=== PATIENT | female | born 1985 | race Caucasian/White ===

== ENCOUNTER 2017-02-07 08:22 | Outpatient (CLI) | payer OTHER | END 2017-02-07 20:37 | disposition home or self-care (01) | LOC: MLB 08:22 | PROVIDERS: ATTEND Family Medicine | DX: D64.9 Anemia, unspecified (principal) ==

== ENCOUNTER 2017-03-07 08:22 | Outpatient (CLI) | payer OTHER | END 2017-03-07 21:35 | disposition home or self-care (01) | LOC: MLB 08:22 | PROVIDERS: ATTEND Family Medicine | DX: R74.0 Nonspecific elevation of levels of transaminase and lactic acid dehydrogenase [LDH] (principal); D50.0 Iron deficiency anemia secondary to blood loss (chronic) ==

== ENCOUNTER 2017-03-10 08:18 | Outpatient (CLI) | payer OTHER | END 2017-03-10 20:45 | disposition home or self-care (01) | LOC: MUS 08:18 | PROVIDERS: ATTEND Family Medicine | PROC: BW40ZZZ Ultrasonography of Abdomen (ICD-10-PCS; principal; 2017-03-10) | PROC: BW4GZZZ Ultrasonography of Pelvic Region (ICD-10-PCS; principal; 2017-03-10) | DX: D50.0 Iron deficiency anemia secondary to blood loss (chronic) (principal); R74.0 Nonspecific elevation of levels of transaminase and lactic acid dehydrogenase [LDH]; N92.0 Excessive and frequent menstruation with regular cycle | CPT/HCPCS: 76700; 76856 ==

== ENCOUNTER 2018-01-26 08:39 | Outpatient (CLI) | payer OTHER ==
[2018-01-26 09:02] LABS: BASOPHILS # (AUTO) 0.2 K/uL (0.00-0.22); BASOPHILS % (AUTO) 2.3 % (0.0-2.0); EOSINOPHILS # (AUTO) 0.1 K/uL (0-0.4); EOSINOPHILS % (AUTO) 1.9 % (0.0-4.0); HEMATOCRIT 28.6 % (36-48); HEMOGLOBIN 8.4 g/dL (12.0-16.0); LYMPHOCYTES # (AUTO) 2.5 K/uL (2.5-16.5); LYMPHOCYTES % (AUTO) 37.6 % (20.5-51.1); MEAN CORPUSCULAR HEMOGLOBIN 18 pg (27-31); MEAN CORPUSCULAR HGB CONC 30 g/dL (33-37); MEAN CORPUSCULAR VOLUME 62.5 fL (80-94); MONOCYTES # (AUTO) 0.3 K/uL (0.8-1.0); MONOCYTES % (AUTO) 3.9 % (1.7-9.3); NEUTROPHILS # (AUTO) 3.4 K/uL (1.8-7.7); NEUTROPHILS % (AUTO) 54.3 % (42.2-75.2); PLATELET COUNT (AUTO) 325 K/uL (140-450); RED BLOOD CELL COUNT(AUTO) 4.58 MIL/uL (4.20-5.40); RED CELL DISTRIBUTION WIDTH 17.3 % (11.6-13.7); WHITE BLOOD COUNT (AUTO) 6.5 K/uL (4.8-10.8)
[2018-01-26 10:05] LABS: ALBUMIN 3.6 g/dL (3.4-5.0); ANION GAP 13.6 (8-16); CARBON DIOXIDE 26.1 mmol/L (21-32); CHOL/HDL RATIO 5.3 (1-4.5); CREATININE 0.6 mg/dL (0.6-1.3); POTASSIUM 3.7 mmol/L (3.5-5.1); TOTAL BILIRUBIN 0.3 mg/dL (0.0-1.0)
[2018-01-30 17:28] LABS: VITAMIN D, 25-HYDROXY 11.8 ng/mL (32.0 - 100)
== END 2018-01-26 18:04 | disposition home or self-care (01) ==
LOC: MLB 08:39
PROVIDERS: ATTEND Family Medicine
DX: D64.9 Anemia, unspecified (principal); E55.9 Vitamin D deficiency, unspecified; R74.0 Nonspecific elevation of levels of transaminase and lactic acid dehydrogenase [LDH]
CPT/HCPCS: 36415; 80053; 82306; 82652; 85025

== ENCOUNTER 2019-01-28 09:51 | Emergency (ER) | payer OTHER ==
[~2019-01-28] VITALS: Ht 160 cm; Wt 83.9 kg
[2019-01-28 09:55] VITALS: BP 167/108
--- NOTE | 2019-01-28 09:55 | NUR ---
PT AMBULATES TO BED 1
--- NOTE | 2019-01-28 09:58 | NUR ---
33 Y F C/O RT. NECK PAIN AND HEADACHE WHEN WAKING UP THIS MORNING. 10/10 PAIN. EAR IS RED AND SWOLLEN INSIDE. ALSO WITH DIZZINESS. DENIES N/V. DENIES INJURY. AA0X4. HIGH BP, WILL REPEAT BP IN TEN MINUTES. BED IS DOWN, LOCKED, BED RAIL X 1. ERMD NOTIFIED. DENIES HX:- DENIES MEDS.
[2019-01-28] MEDS ORDERED: NACL 0.9% 1,000 ML IV SCH (10:16)
[2019-01-28] MEDS ORDERED: MORPHINE SULFATE 4 MG/ML SYR IVP ONE (10:20)
[2019-01-28] MEDS ORDERED: AZITHROMYCIN 500 MG in DEXTROSE 5% 250 ML IV ONE (10:20)
[2019-01-28] MEDS ORDERED: PIPERACILLIN/TAZOBACTAM 3.375 GM in DEXT 5% MINI-BAG PLUS 50 ML IV ONE (10:20)
[2019-01-28] MEDS ORDERED: FAMOTIDINE 20 MG/2 ML VIAL IVP ONE (10:20)
[2019-01-28] MEDS ORDERED: DEXAMETHASONE 10 MG/ML VIAL IVP ONE (10:20)
[2019-01-28] MEDS ORDERED: MECLIZINE 25 MG TAB PO ONE (10:20)
--- NOTE | 2019-01-28 10:26 | NUR ---
DR LARKIN AT BEDSIDE
--- NOTE | 2019-01-28 10:40 | NUR ---
NEW BP IS 160/94
[2019-01-28] MEDS ORDERED: AZITHROMYCIN 500 MG INJ VIAL IV ONE (10:41)
[2019-01-28] MEDS ORDERED: PIPERACILLIN/TAZOBACTAM 3.375 GM VIAL IV ONE (10:41)
[2019-01-28 10:58] LABS: BASOPHILS % (AUTO) 0.2 % (0.0-2.0); EOSINOPHILS # (AUTO) 0.1 K/uL (0-0.4); EOSINOPHILS % (AUTO) 1.1 % (0.0-4.0); HEMATOCRIT 27.9 % (36-48); HEMOGLOBIN 8.2 g/dL (12.0-16.0); LYMPHOCYTES # (AUTO) 1.5 K/uL (2.5-16.5); LYMPHOCYTES % (AUTO) 18.2 % (20.5-51.1); MEAN CORPUSCULAR HEMOGLOBIN 19 pg (27-31); MEAN CORPUSCULAR HGB CONC 29 g/dL (33-37); MEAN CORPUSCULAR VOLUME 64.1 fL (80-94); MONOCYTES # (AUTO) 0.4 K/uL (0.8-1.0); MONOCYTES % (AUTO) 4.4 % (1.7-9.3); NEUTROPHILS # (AUTO) 6.3 K/uL (1.8-7.7); NEUTROPHILS % (AUTO) 76.1 % (42.2-75.2); PLATELET COUNT (AUTO) 296 K/uL (140-450); RED BLOOD CELL COUNT(AUTO) 4.35 MIL/uL (4.20-5.40); RED CELL DISTRIBUTION WIDTH 19.1 % (11.6-13.7); WHITE BLOOD COUNT (AUTO) 8.2 K/uL (4.8-10.8)
[2019-01-28 11:07] LABS: ANION GAP 9.7 (8-16); CARBON DIOXIDE 30.3 mmol/L (21-32); CREATININE 0.6 mg/dL (0.6-1.3)
[2019-01-28] MEDS ORDERED: KETOROLAC 30 MG/ML VIAL IVP ONE (11:10)
[2019-01-28 11:11] LABS: ALBUMIN 3.4 g/dL (3.4-5.0); TOTAL BILIRUBIN 0.5 mg/dL (0.0-1.0)
--- NOTE | 2019-01-28 12:07 | NUR ---
PT STATES SHE IS NO LONGER IN PAIN. 0. PT IS RESTING IN BED WITHT HE LIGHTS OFF. VSS AT THIS TIME. AA0X4.
[2019-01-28 13:40] VITALS: BP 137/90
--- NOTE | 2019-01-28 13:40 | NUR ---
Patient discharged with v/s stable. Written and verbal after care instructions given and explained. Patient alert, oriented and verbalized understanding of instructions. Ambulatory with steady gait. All questions addressed prior to discharge. ID band removed. Patient advised to follow up with PMD. Rx of PRENISONE, TRAMADOL, AZITHROMYCIN, CLARITIN given. Patient educated on indication of medication including possible reaction and side effects. Opportunity to ask questions provided and answered.
--- NOTE | 2019-01-28 13:43 | NUR ---
PT REQUESTED A COPY OF HER LABS
== END 2019-01-28 13:40 | disposition home or self-care (01) ==
LOC: MED 09:51
DX: H65.91 Unspecified nonsuppurative otitis media, right ear (principal); R51 Headache
CPT/HCPCS: 36415; 80053; 81002; 81025; 85025; 96365; 96367; 96375; 99283; J0456; J1100; J1885; J2270; J2543; J3490; J7030; J7060; J8597

== ENCOUNTER 2019-06-01 10:48 | Outpatient (CLI) | payer OTHER | END 2019-06-01 21:03 | disposition home or self-care (01) | LOC: MLB 10:48 | PROVIDERS: ATTEND Family Medicine | DX: N92.6 Irregular menstruation, unspecified (principal) | CPT/HCPCS: 36415; 84144; 84702 ==

== ENCOUNTER 2019-06-15 16:37 | Emergency (ER) | payer OTHER ==
[~2019-06-15] VITALS: Ht 160 cm; Wt 85.3 kg
[2019-06-15 16:40] VITALS: BP 153/98
--- NOTE | 2019-06-15 16:48 | NUR ---
dr mitchell at bedside
--- NOTE | 2019-06-15 16:58 | NUR ---
ULTRASOUND AT BEDSIDE
--- NOTE | 2019-06-15 17:30 | NUR ---
PT BIB SELF FOR LOWER ABD PAIN STARTING ABOUT 2 HOURS [employer]CR[employer]. PT STATES SHE IS , NO VAGINAL BLEEDING AT THIS TIME. PT DENIES TRAUMA, INJURY OR ANY HEAVY LIFTING. ABD IS ROUND, SOFT, NON TENDER. 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 PT LAYING IN BED, POSITIONED TO COMFORT.
[2019-06-15 18:11] LABS: BASOPHILS % (AUTO) 0.5 % (0.0-2.0); EOSINOPHILS # (AUTO) 0.1 K/uL (0-0.4); EOSINOPHILS % (AUTO) 1.1 % (0.0-4.0); HEMOGLOBIN 7.6 g/dL (12.0-16.0); LYMPHOCYTES # (AUTO) 2.4 K/uL (2.5-16.5); LYMPHOCYTES % (AUTO) 28.6 % (20.5-51.1); MEAN CORPUSCULAR HEMOGLOBIN 18 pg (27-31); MEAN CORPUSCULAR HGB CONC 29 g/dL (33-37); MEAN CORPUSCULAR VOLUME 61.1 fL (80-94); MONOCYTES # (AUTO) 0.5 K/uL (0.8-1.0); MONOCYTES % (AUTO) 5.9 % (1.7-9.3); NEUTROPHILS # (AUTO) 5.4 K/uL (1.8-7.7); NEUTROPHILS % (AUTO) 63.9 % (42.2-75.2); PLATELET COUNT (AUTO) 291 K/uL (140-450); RED BLOOD CELL COUNT(AUTO) 4.25 MIL/uL (4.20-5.40); RED CELL DISTRIBUTION WIDTH 18.7 % (11.6-13.7); WHITE BLOOD COUNT (AUTO) 8.4 K/uL (4.8-10.8)
[2019-06-15 18:27] LABS: ALBUMIN 3.6 g/dL (3.4-5.0); ANION GAP 11.4 (8-16); CREATININE 0.5 mg/dL (0.6-1.3); POTASSIUM 3.4 mmol/L (3.5-5.1); TOTAL BILIRUBIN 0.3 mg/dL (0.0-1.0)
--- NOTE | 2019-06-15 18:36 | NUR ---
Patient discharged BY DR KWONG. Written and verbal after care instructions given and explained BY DR KWONG. Patient Ambulatory with steady gait.
== END 2019-06-15 18:36 | disposition home or self-care (01) ==
LOC: MED 16:37
DX: O26.891 Other specified pregnancy related conditions, first trimester (principal); R10.30 Lower abdominal pain, unspecified; O99.011 Anemia complicating pregnancy, first trimester; Z3A.01 Less than 8 weeks gestation of pregnancy
CPT/HCPCS: 36415; 76801; 80053; 84702; 85025; 86900; 86901; 99284; Q0092

== ENCOUNTER 2019-07-04 07:27 | Emergency (ER) | payer OTHER ==
[~2019-07-04] VITALS: Ht 160 cm; Wt 81.6 kg
[2019-07-04 07:29] VITALS: BP 127/69
--- NOTE | 2019-07-04 07:29 | NUR ---
PT W/C TO BED 1.
[2019-07-04] MEDS ORDERED: ACETAMINOPHEN EXTRA STRENGTH 500 MG TAB PO ONE (07:30)
--- NOTE | 2019-07-04 07:30 | NUR ---
BIB C/O LEFT ANKLE AND RIGHT KNEE PAIN AFTER TRIP AND FALL THIS MORNING. . LMP 04/24/19. PATIENT STATES PAIN OF 10/10 AT THIS TIME; PATIENT POSITIONED FOR COMFORT; HOB ELEVATED; BEDRAILS UP X1; BED DOWN. ER MD MADE AWARE OF PT STATUS.
--- NOTE | 2019-07-04 07:39 | NUR ---
X RAY AT BEDSIDE
[2019-07-04 08:25] VITALS: BP 127/69
--- NOTE | 2019-07-04 08:25 | NUR ---
Patient discharged with v/s stable. Written and verbal after care instructions given and explained. Patient verbalized understanding. Ambulatory with CRUTCHES TO CAR. All questions addressed prior to discharge. Advised to follow up with PMD.
== END 2019-07-04 08:25 | disposition home or self-care (01) ==
LOC: MED 07:27
DX: O9A.211 Injury, poisoning and certain other consequences of external causes complicating pregnancy, first trimester (principal); S93.402A Sprain of unspecified ligament of left ankle, initial encounter; S80.01XA Contusion of right knee, initial encounter; Z3A.01 Less than 8 weeks gestation of pregnancy; W18.31XA Fall on same level due to stepping on an object, initial encounter; Y93.01 Activity, walking, marching and hiking; Y92.89 Other specified places as the place of occurrence of the external cause; Y99.8 Other external cause status
CPT/HCPCS: 73562; 73610; 99283; Q0092

== ENCOUNTER 2019-09-06 09:18 | Outpatient (CLI) | payer OTHER ==
[2019-09-06 10:27] LABS: BASOPHILS % (AUTO) 0.3 % (0.0-2.0); EOSINOPHILS % (AUTO) 0.7 % (0.0-4.0); HEMATOCRIT 28.9 % (36-48); HEMOGLOBIN 8.5 g/dL (12.0-16.0); LYMPHOCYTES # (AUTO) 1.6 K/uL (2.5-16.5); LYMPHOCYTES % (AUTO) 21.7 % (20.5-51.1); MEAN CORPUSCULAR HEMOGLOBIN 19 pg (27-31); MEAN CORPUSCULAR HGB CONC 30 g/dL (33-37); MEAN CORPUSCULAR VOLUME 64.6 fL (80-94); MONOCYTES # (AUTO) 0.3 K/uL (0.8-1.0); MONOCYTES % (AUTO) 4.6 % (1.7-9.3); NEUTROPHILS # (AUTO) 5.4 K/uL (1.8-7.7); NEUTROPHILS % (AUTO) 72.7 % (42.2-75.2); PLATELET COUNT (AUTO) 315 K/uL (140-450); RED BLOOD CELL COUNT(AUTO) 4.48 MIL/uL (4.20-5.40); WHITE BLOOD COUNT (AUTO) 7.4 K/uL (4.8-10.8)
[2019-09-07 09:18] LABS: HEPATITIS B SURFACE ANTIBODY Reactive (.)
== END 2019-09-06 20:37 | disposition home or self-care (01) ==
LOC: MLB 09:18
PROVIDERS: ATTEND Family Medicine
DX: Z34.92 Encounter for supervision of normal pregnancy, unspecified, second trimester (principal)
CPT/HCPCS: 36415; 84443; 85025; 86592; 86702; 86706; 86762; 86886; 86900; 86901

== ENCOUNTER 2021-07-20 11:18 | Emergency (ER) | payer OTHER ==
[~2021-07-20] VITALS: Ht 160 cm; Wt 83.9 kg
[2021-07-20 11:36] VITALS: BP 140/76
--- NOTE | 2021-07-20 11:40 | NUR ---
TENT 1
--- NOTE | 2021-07-20 11:46 | NUR ---
Fernando vicente and HYACINTH collected, handed to CPT. Pipo
[2021-07-20] MEDS ORDERED: ONDANSETRON 4 MG/2 ML VIAL IVP ONE (12:15)
[2021-07-20] MEDS ORDERED: NACL 0.9% 2,000 ML IV ONE (12:15)
[2021-07-20] MEDS ORDERED: KETOROLAC 15 MG/ML VIAL IVP ONE ×2 (12:15→14:25)
[2021-07-20] MEDS ORDERED: MORPHINE SULFATE 4 MG/ML SYR IVP ONE ×2 (12:15→14:30)
--- NOTE | 2021-07-20 12:26 | NUR ---
36 YO FEMALE BIBS WITH C/O URINARY BURNING SENSATION, FEVER, GARRETT, 10/10 MID-LOWER BACK PAIN X 1 DAY. PATIENT STATES, MILD DISCOMFORT DURING URINATION. NO OTHER URINARY PROBLEMS, COLOR IS GI[place]NA, DENIES BLOOD. STATES FEVER HIGH 102, TYLENOL TAKEN FOR RELIEF. 99.2 TEMP AT THIS TIME. PATIENT PLACED IN GOWN, URINE SAMPLE COLLECTED. A&OX4, RR EVEN AND UNLABORED. PMH: ANEMIA NKDA
[2021-07-20] MEDS ORDERED: cefTRIAXone 1,000 MG VIAL ONE (12:39)
[2021-07-20 12:46] LABS: BASOPHILS % (AUTO) 0.3 % (0.0-2.0); HEMATOCRIT 30.4 % (36-48); HEMOGLOBIN 9.3 g/dL (12.0-16.0); LYMPHOCYTES # (AUTO) 0.5 K/uL (2.5-16.5); LYMPHOCYTES % (AUTO) 6.7 % (20.5-51.1); MEAN CORPUSCULAR HEMOGLOBIN 20 pg (27-31); MEAN CORPUSCULAR HGB CONC 31 g/dL (33-37); MEAN CORPUSCULAR VOLUME 65.2 fL (80-94); MONOCYTES # (AUTO) 0.2 K/uL (0.8-1.0); MONOCYTES % (AUTO) 3.1 % (1.7-9.3); NEUTROPHILS # (AUTO) 6.4 K/uL (1.8-7.7); NEUTROPHILS % (AUTO) 89.9 % (42.2-75.2); PLATELET COUNT (AUTO) 242 K/uL (140-450); RED BLOOD CELL COUNT(AUTO) 4.66 MIL/uL (4.20-5.40); RED CELL DISTRIBUTION WIDTH 18.8 % (11.6-13.7); WHITE BLOOD COUNT (AUTO) 7.1 K/uL (4.8-10.8)
[2021-07-20 13:03] LABS: ALBUMIN 4.1 g/dL (3.4-5.0); ANION GAP 13.6 (8-16); CARBON DIOXIDE 25.5 mmol/L (21-32); CREATININE 0.7 mg/dL (0.6-1.3); POTASSIUM 3.1 mmol/L (3.5-5.1)
[2021-07-20 13:23] LABS: APPEARANCE,URINE CLEAR (CLEAR); BILIRUBIN,URINE NEGATIVE (NEGATIVE); BLOOD, URINE 2+ (NEGATIVE); COLOR,URINE YELLOW (YELLOW); LEUKOCYTE ESTERASE ,URINE NEGATIVE (NEGATIVE); NITRITE, URINE NEGATIVE (NEGATIVE); PH,URINE 5.5 (5.0-9.0); UGLUCOSE NEGATIVE (NEGATIVE)
[2021-07-20] MEDS ORDERED: ACETAMINOPHEN 325 MG TAB PO ONE (13:25)
[2021-07-20] MEDS ORDERED: POTASSIUM CHLORIDE 10 MEQ TABER PO SCH (13:30)
[2021-07-20 13:39] LABS: RBC,URINE 0-5 /HPF (0-5); WBC,URINE 0-5 /HPF (0-5)
[2021-07-20] MEDS ORDERED: ONDA-24 PO (14:11)
[2021-07-20] MEDS ORDERED: ACET-2619 PO (14:11)
[2021-07-20] MEDS ORDERED: CEPH-588 PO (14:11)
--- NOTE | 2021-07-20 15:25 | NUR ---
PT TAKEN TO CT VIA W/C.
--- NOTE | 2021-07-20 15:41 | NUR ---
RETURNED FROM CT VIA W/C
[2021-07-20 16:18] VITALS: BP 112/61
--- NOTE | 2021-07-20 16:23 | NUR ---
PATIENT RESTING IN BED, DENIES PAIN, VS STABLE.
--- NOTE | 2021-07-20 17:31 | NUR ---
Patient discharged with v/s stable. Written and verbal after care instructions given and explained. Patient alert, oriented and verbalized understanding of instructions. Ambulatory with steady gait. All questions addressed prior to discharge. ID band removed. Patient advised to follow up with PMD. Rx of KEFLEX, TYLENOL, ZOFRAN given. Patient educated on indication of medication including possible reaction and side effects. Opportunity to ask questions provided and answered.
== END 2021-07-20 17:31 | disposition home or self-care (01) ==
LOC: MED 11:18
DX: N12 Tubulo-interstitial nephritis, not specified as acute or chronic (principal); E87.6 Hypokalemia; D64.9 Anemia, unspecified; R74.8 Abnormal levels of other serum enzymes; R74.01 Elevation of levels of liver transaminase levels; Z20.822 Contact with and (suspected) exposure to COVID-19
CPT/HCPCS: 36415; 74177; 80053; 81001; 81025; 83605; 85025; 87040; 87086; 87426; 96365; 96375; 96376; 99285; J0696; J1885; J2270; J2405; J7030; Q9967

== ENCOUNTER 2022-03-26 19:12 | Emergency (ER) | payer OTHER ==
[~2022-03-26] VITALS: Ht 160 cm; Wt 83.9 kg
[~2022-03-26 19:12] MED LIST: ACET-2619 PO; CEPH-588 PO; ONDA-188 PO
[2022-03-26 19:13] VITALS: BP 159/88
[2022-03-26] MEDS ORDERED: IBUP-2213 PO (19:58)
[2022-03-26 20:07] VITALS: BP 159/88
== END 2022-03-26 20:07 | disposition home or self-care (01) ==
LOC: MED 19:12
DX: S93.402A Sprain of unspecified ligament of left ankle, initial encounter (principal); M19.90 Unspecified osteoarthritis, unspecified site; R03.0 Elevated blood-pressure reading, without diagnosis of hypertension; Z79.1 Long term (current) use of non-steroidal anti-inflammatories (NSAID); Z79.899 Other long term (current) drug therapy; Z79.2 Long term (current) use of antibiotics; X58.XXXA Exposure to other specified factors, initial encounter; Y92.89 Other specified places as the place of occurrence of the external cause; Y93.89 Activity, other specified; Y99.8 Other external cause status
CPT/HCPCS: 73610; 99283